=== PATIENT | male | born 1965 | race African-American/Black ===

== ENCOUNTER 2017-07-21 12:46 | Emergency (ER) | payer MEDICARE, MEDICAID ==
[2017-07-21] MEDS ORDERED: HALOPERIDOL LACTATE 5 MG/ML VIAL IM ONE (13:09)
--- NOTE | 2017-07-21 13:29 | ERNOTE ---
Psychological HPI - Date Date of Service: 07/21/17 - General Chief Complaint: Psychiatric Problem Source: Reports: patient Exam Limitations: Reports: no limitations - Immun/Allergies/Home Medications Allergies/Adverse Reactions: Allergies sulfamethoxazole [From Bactrim] Allergy (Mild, Verified 07/21/17 12:54) Hives trimethoprim [From Bactrim] Allergy (Mild, Verified 07/21/17 12:54) Hives Home Medications: HOME MEDICATIONS Amiodarone HCl [Cordarone] 200 mg PO DAILY 12/27/13 [Last Taken 04/04/15 08:00] Aspirin [Aspirin Enteric Coated] 325 mg PO DAILY 12/27/13 [Last Taken Unknown] Nitroglycerin [Nitrostat] 0.4 mg SL Q5MIN PRN 12/27/13 [Last Taken Unknown] Ranitidine HCl [Zantac] 150 mg PO BID 12/27/13 [Last Taken Unknown] Sertraline HCl [Zoloft] 150 mg PO DAILY 12/27/13 [Last Taken Unknown] Simvastatin [Zocor] 20 mg PO HS 12/27/13 [Last Taken Unknown] Carvedilol [Coreg] 25 mg PO BID 04/03/15 [Last Taken 04/04/15 08:00] Lisinopril [Prinivil] 20 mg PO BID 04/03/15 [Last Taken 04/04/15 08:00] risperiDONE [Risperdal] 3 mg PO HS 04/03/15 [Last Taken Unknown] ALPRAZolam [Xanax] 2 mg PO QID #54 tablet 07/21/17 [Last Taken Unknown] QUEtiapine FUMARATE [Seroquel] 400 mg PO HS #6 tablet 07/21/17 [Last Taken Unknown] Sertraline HCl [Zoloft] 150 mg PO DAILY #10 tablet 07/21/17 [Last Taken Unknown] Zolpidem Tartrate [ZOLPIDEM (Ambien)] 10 mg PO HS #6 tablet 07/21/17 [Last Taken Unknown] - History of Present Illness Narrative: Pt. comes in with c/o seeing things and inability to sleep after he misplaced his psychiatric medications three days ago. Pt. denies that anyone else has access to his medications or could have stolen them. Pt. states that he has been on medications for years and sees Alivia Strong and has known schizoeffective disorder that he has seen her for in the past. Time Seen by Provider: 07/21/17 13:01 Arrived by: Reports: private car Onset/duration: Reports: gradual onset Intent: Reports: no prior thoughts-suicide. Denies: suicide, prior thoughts of suicide, wants to escape, accidental Mechanism: Denies: overdose, incision, stab wound, ingestion Situational Problems: Reports: other - denies Associated Symptoms: Reports: agitated, paranoid, hallucinating. Denies: hostile, confused, suicidal thoughts, specific plan, made gestures, made attempt Prior Treament: Reports: treated by physician, similar symptoms before Review of Systems - Review of Systems Constitutional: Present: no symptoms reported. Absent: fever, chills, weakness , fatigue, malaise EYE: Present: no symptoms reported ENT: Present: no symptoms reported Respiratory: Present: no symptoms reported. Absent: shortness of breath, cough , wheezing Cardiology: Present: no symptoms reported. Absent: chest pain, palpitations, edema Gastrointestinal/Abdominal: Present: no symptoms reported. Absent: nausea, vomiting, diarrhea, abdominal pain Genitourinary: Present: no symptoms reported. Absent: frequency, decreased urinary output Musculoskeletal: Present: no symptoms reported. Absent: back pain, joint pain Skin: Present: no symptoms reported. Absent: rash, change in hair/nails Neurological: Present: no symptoms reported. Absent: headache, dizziness/light- headedness, numbness, tingling Endocrine: Present: no symptoms reported Psych: Present: anxiety, emotional problems, other - hallucinations All Other Systems: All systems neg except as marked - Patient's Past Medical History Patient History - Medical: GERD, UTI'S Patient History - Cardiac/Respiratory: CVA/Stroke, Myocardial Infarction Patient History - Cancer: No Hx of Cancer Patient History - Surgical Procedures: Pacemaker, Other Patient History - Other: None - Social History Living Situations: home Abuse History: No History of abuse Psych History: Hx of Anxiety, Hx of Depression, Current tx/ever been on anti- depressants or anti-anxiety meds Alcohol Use: none Drug Use: none Psychological Exam - Exam General Appearance: Present: wd/wn, alert, no apparent distress, anxious, other - agitated Head Exam: Present: normal inspection, no evidence of injury, no tenderness w palpation Neurological: Present: alert, agitated, anxious Thoughts/Hallucinations: Present: delusions, flight of ideas, paranoid, visual hallucinations Behavior/Eye Contact/Speech: Present: cooperative, avoids eye contact, increased rate of speech ENT Exam normal except (see below): Yes Neck: Present: normal inspection, nontender, supple, full range of motion. Absent: lymphadenopathy (R), lymphadenopathy (L) Respiratory: Present: no respiratory distress, normal breath sounds, no accessory muscle use, chest nontender, lungs clear Cardiovascular/Chest: Present: regular rate, rhythm, no murmur, normal peripheral pulses Gastrointestinal/Abdominal: Present: normal bowel sounds, nontender, nondistended, soft, no organomegaly Back Exam: Present: normal inspection Extremity Exam: Present: normal inspection Skin Exam: Present: normal color, warm/dry, no cyanosis. Absent: pallor, skin rash ED Progress - Date and Time Seen: Date and Time: 07/21/17 14:12 Pt. is still delusional and pacing so will CT head as pt. has a history of subdural hematoma and this can explain his symptoms. 07/21/17 15:45 Pt. ELIJAH is requesting to take pt. home and although I have explained to her that pt. is likely a possible harm to himself or her she is adamant about taking pt home although he is still actively hallucinating and agitated. Discussed with Dr Daly and he recommends sending pt. home as she requests. Will refill meds and have instructed pt. DPWICHO to return if she is concerned for pt. safety. - Results and Orders Patient's Lab Results:: I have reviewed the patient's lab results. Results and Orders: Abnormal Lab Results 07/21/17 07/21/17 07/21/17 Range/Units 13:20 13:20 13:34 MCV 75.9 L (78-100) fl MCHC 37.6 H (32-36) g/dl MPV 10.3 H (6.0-9.5) fl Chloride 96 L (97-106) mmol/L Anion Gap 15.4 H (6.8-13.8) mmol/L Random Glucose 151 H (70-110) mg/dL Total Protein 8.7 H (6.2-8.2) gm/dL Urine Protein 100 H (NEGATIVE) mg/dL Urine Blood 25 H (NEGATIVE) /ul Salicylates Less than 2.8 L (2.8-20.0) mg/dL - Vital Signs Patient's Vital Signs:: I have reviewed the patient's vital signs. Vital Signs: Vital Signs 07/21/17 12:51 Temperature 36.2 C L Pulse Rate 69 Respiratory 12 Rate Blood Pressure 155/98 O2 Sat by Pulse 98 Oximetry - CT/Ultrasound CT/Ultrasound Narrative: CT head without any acute process. - Progress/Reassessment Chief Complaint: Psychiatric Problem Progress:: Unchanged Time Seen by Provider: 07/21/17 13:01 Departure Clinical Impression: Schizo affective schizophrenia - Departure Disposition: Home self-care Condition: Fair Instructions: Schizophrenia Additional Instructions: Please restart psychiatric medications and do not leave pt alone at any time until he improves and is seen by psychiatrist. Referrals: Sandie Myrick MD [Primary Care Provider] - Prescriptions: ALPRAZolam [Xanax] 2 mg PO QID #54 tablet QUEtiapine FUMARATE [Seroquel] 400 mg PO HS #6 tablet Sertraline HCl [Zoloft] 150 mg PO DAILY #10 tablet Zolpidem Tartrate [ZOLPIDEM (Ambien)] 10 mg PO HS #6 tablet
[2017-07-21] MEDS ORDERED: HALOPERIDOL LACTATE 5 MG/ML VIAL ONE (13:35)
[2017-07-21 13:38] LABS: Urine Bilirubin Negative (NEGATIVE); Urine Blood 25 /ul (NEGATIVE); Urine Ketone Negative (NEGATIVE); Urine Nitrite Negative (NEGATIVE); Urine Protein 100 mg/dL (NEGATIVE); Urine Urobilinogen Normal (NORMAL)
[2017-07-21 13:44] LABS: Urine Appearance Clear; Urine Bacteria None Seen; Urine Color Yellow; Urine RBC None Seen /hpf (0-5); Urine WBC None Seen /hpf (0-5)
[2017-07-21 13:50] LABS: Cocaine Ur Negative (NEGATIVE); Urine Barbiturate Negative (NEGATIVE); Urine Benzodiazepines Negative (NEGATIVE); Urine Opiates Negative (NEGATIVE); Urine PCP Negative (NEGATIVE); Urine THC Negative (NEGATIVE)
[2017-07-21 13:53] LABS: Hematocrit 42.5 % (42.0-52.0); Mean Cell Volume 75.9 fl (78-100); Mean Corpuscular Hemoglobin 28.6 pg (27-31); Mean Corpuscular Hgb Conc 37.6 g/dl (32-36); Mean Platelet Volume 10.3 fl (6.0-9.5); Neutrophil % 72.9 % (42-75.0); Platelet Count 299 K/mm3 (150-450); White Blood Count 8.3 K/mm3 (4.0-10.5)
[2017-07-21 13:54] LABS: ALT 22 U/L (19-67); AST 15 U/L (0-48); Albumin * 4.7 gm/dl (3.4-5.0); Alkaline Phosphatase * 106 U/L (50-170); Anion Gap 15.4 mmol/L (6.8-13.8); Bilirubin, Total 0.9 mg/dL (0.0-1.1); Blood Urea Nitrogen 9 mg/dL (6-23); Ca. Corrected For Albumin 8.4 mg/dL (8.4-10.2); Calcium * 9.3 mg/dL (7.9-10.9); Chloride 96 mmol/L (97-106); Glucose * 151 mg/dL (70-110); Potassium 3.4 mmol/L (3.4-4.6); Salicylate Less than 2.8 mg/dL (2.8-20.0); Sodium 133 mmol/L (132-142); TSH * 1.175 uIU/mL (0.358-3.74); Total Protein 8.7 gm/dL (6.2-8.2)
[2017-07-21] MEDS ORDERED: ALPRAZolam 0.25 MG TABLET PO ONE (14:22)
[2017-07-21] MEDS ORDERED: ALPRAZolam 0.25 MG TABLET ONE (14:34)
[2017-07-21 15:02] VITALS: BP 131/81
== END 2017-07-21 15:59 | disposition home or self-care (01) ==
LOC: ER 12:46
DX: F25.9 Schizoaffective disorder, unspecified (principal); K21.9 Gastro-esophageal reflux disease without esophagitis; Z86.73 Personal history of transient ischemic attack (TIA), and cerebral infarction without residual deficits; I25.2 Old myocardial infarction
CPT/HCPCS: 36415; 70450; 80053; 80307; 81001; 84443; 85025; 96372; 99285; G0480; G0481

== ENCOUNTER 2017-08-26 14:47 | Emergency (ER) | payer MEDICARE, MEDICAID ==
[2017-08-26 15:47] LABS: Hematocrit 37.6 % (42.0-52.0); Hemoglobin 13.7 gm/dL (13.5-18.0); Mean Cell Volume 78.2 fl (78-100); Mean Corpuscular Hemoglobin 28.5 pg (27-31); Mean Corpuscular Hgb Conc 36.4 g/dl (32-36); Mean Platelet Volume 11.2 fl (6.0-9.5); Neutrophil # 3.1 K/mm3 (1.3-6.0); Neutrophil % 57.7 % (42-75.0); Platelet Count 179 K/mm3 (150-450); Red Blood Count 4.81 M/mm3 (4.7-6.0); Red Cell Distribution Width 13.2 % (11.5-14.0); White Blood Count 5.3 K/mm3 (4.0-10.5)
[2017-08-26 16:10] LABS: Albumin * 3.7 gm/dl (3.4-5.0); Anion Gap 12.9 mmol/L (6.8-13.8); BUN/Creatinine Ratio 6.7 (9.0-21.6); Bilirubin, Total 0.4 mg/dL (0.0-1.1); Ca. Corrected For Albumin 8.9 mg/dL (8.4-10.2); Carbon Dioxide 28.3 mmol/L (24-32.6); Potassium 4.2 mmol/L (3.4-4.6); Total Protein 7.6 gm/dL (6.2-8.2); Troponin I 0.037 ng/ml (0.00-0.10)
--- NOTE | 2017-08-26 18:47 | ERNOTE ---
Medical Problem HPI - Narrative Date of Service: 08/26/17 - General Chief Complaint: General Assessment Time Seen by Provider: 08/26/17 15:02 Source: patient, family Exam Limitations: no limitations - Immun/Allergies/Home Medications Immunizations: IMMUNIZATION HX Immunizations Up to Date Yes Allergies/Adverse Reactions: Allergies sulfamethoxazole [From Bactrim] Allergy (Mild, Verified 08/26/17 15:08) Hives trimethoprim [From Bactrim] Allergy (Mild, Verified 08/26/17 15:08) Hives Home Medications: HOME MEDICATIONS Amiodarone HCl [Cordarone] 600 mg PO DAILY 12/27/13 [Last Taken 04/04/15 08:00] Aspirin [Aspirin Enteric Coated] 325 mg PO DAILY 12/27/13 [Last Taken Unknown] Nitroglycerin [Nitrostat] 0.4 mg SL Q5MIN PRN 12/27/13 [Last Taken Unknown] Ranitidine HCl [Zantac] 150 mg PO BID 12/27/13 [Last Taken Unknown] Simvastatin [Zocor] 20 mg PO HS 12/27/13 [Last Taken Unknown] Carvedilol [Coreg] 25 mg PO BID 04/03/15 [Last Taken 04/04/15 08:00] Lisinopril [Prinivil] 40 mg PO DAILY 04/03/15 [Last Taken 04/04/15 08:00] risperiDONE [Risperdal] 2 mg PO HS 04/03/15 [Last Taken Unknown] ALPRAZolam [Xanax] 2 mg PO QID #54 tablet 07/21/17 [Last Taken Unknown] Sertraline HCl [Zoloft] 150 mg PO DAILY #10 tablet 07/21/17 [Last Taken Unknown] Zolpidem Tartrate [ZOLPIDEM (Ambien)] 10 mg PO HS #6 tablet 07/21/17 [Last Taken Unknown] Furosemide [Lasix] 40 mg PO DAILY #30 tablet 08/26/17 [Last Taken Unknown] Methimazole [Tapazole] 10 mg PO DAILY 08/26/17 [Last Taken Unknown] Sildenafil Citrate [Revatio] 20 mg PO TID 08/26/17 [Last Taken Unknown] hydrOXYzine PAMOATE [Hydroxyzine Pamoate] 25 mg PO QID 08/26/17 [Last Taken Unknown] - History of Present History Narrative: patient c/o sob and weight gain over last week Timing: constant, getting worse Severity: mild Modifying Factors - (Improves): Present: other - nothing Review of Systems - Review of Systems Constitutional: Present: See HPI, weakness, other - weight gain EYE: Present: no symptoms reported ENT: Present: no symptoms reported Respiratory: Present: shortness of breath, orthopnea Cardiology: Present: edema Gastrointestinal/Abdominal: Present: no symptoms reported Genitourinary: Present: no symptoms reported Musculoskeletal: Present: no symptoms reported Skin: Present: no symptoms reported Neurological: Present: no symptoms reported Endocrine: Present: no symptoms reported Hematologic/Lymphatic: Present: no symptoms reported Psych: Present: no symptoms reported All Other Systems: All systems neg except as marked - Patient's Past Medical History Patient History - Medical: GERD, UTI'S Patient History - Cardiac/Respiratory: Coronary Heart Disease, CVA/Stroke, Myocardial Infarction Patient History - Cancer: No Hx of Cancer Patient History - Surgical Procedures: Pacemaker, Other Patient History - Other: None - Family History Family History:: no untoward family reactions to anesthesia, no familial bleeding tendencies, no family history of clotting disorders, no family history of premature - Social History Living Situations: home Abuse History: No History of abuse Psych History: Hx of Anxiety, Hx of Depression, Current tx/ever been on anti- depressants or anti-anxiety meds Smoking Status: Current every day smoker Have you smoked in the past 12 months: Yes Do you dip or chew tobacco: Yes Patient requests Smoking Cessation Consult: No Initiate information on Smoking Cessation: No Alcohol Use: none Drug Use: none - Immunizations Immunizations Up to Date: Yes Physical Exam - Physical Exam General Appearance: Present: no apparent distress Head Exam: Present: normal inspection, no evidence of injury Eye Exam: Normal inspection: bilateral, PERRL: bilateral, EOMI: bilateral Ears, Nose, Throat: Present: normal ENT inspection Neck: Present: normal inspection, nontender Respiratory: Present: no respiratory distress, rales, rhonchi Cardiovascular/Chest: Present: regular rate, rhythm, no murmur, normal peripheral pulses Peripheral Pulses: N=norm/S=strong/W=weak/B=bound/A=absent: Carotid (R): Normal , Carotid (L): Normal, Radial (R): Normal, Radial (L): Normal, Femoral (R): Normal, Femoral (L): Normal, Dorsalis-pedis (R): Normal, Dorsalis-pedis (L): Normal Gastrointestinal/Abdominal: Present: normal bowel sounds Back Exam: Present: normal inspection, normal range of motion, no CVA tenderness , no vertebral tenderness Extremity Exam: Present: normal inspection, non-tender, normal range of motion, no edema Neurological Exam: Present: alert, oriented, normal mood/affect DTR: N=norm/NB=norm/brisk/A=abs/DD=dull/dimin/HC=hyperactive: Bicep (R): Normal , Bicep (L): Normal, Tricep (R): Normal, Tricep (L): Normal, Knee (R): Normal, Knee (L): Normal, Ankle (R): Normal, Ankle (L): Normal Skin Exam: Present: normal color, warm/dry Lymphatic Exam: Present: no adenopathy ED Progress - Date and Time Seen: Date and Time: 08/26/17 18:43 condition unchanged, discussed labs and x-rays with the patient, to f/u with dr myrick - Results and Orders Patient's Lab Results:: I have reviewed the patient's lab results. - Vital Signs Patient's Vital Signs:: I have reviewed the patient's vital signs. Vital Signs: Vital Signs 08/26/17 08/26/17 08/26/17 14:56 15:19 15:34 Temperature 36.5 C Pulse Rate 81 77 82 Respiratory 19 12 20 Rate Blood Pressure 133/75 124/79 O2 Sat by Pulse 61 L 94 92 Oximetry 08/26/17 08/26/17 08/26/17 15:51 16:06 16:42 Temperature Pulse Rate 103 H 80 80 Respiratory 12 18 28 H Rate Blood Pressure 138/92 141/70 O2 Sat by Pulse 96 92 93 Oximetry 08/26/17 08/26/17 17:10 17:48 Temperature 36.7 C Pulse Rate 86 80 Respiratory 28 H 16 Rate Blood Pressure 139/69 142/94 O2 Sat by Pulse 93 95 Oximetry - EKG EKG: other - paced rhtym EKG read: Interp. by me - X-Ray X-Ray #1 X-Ray: chest - unremarkable - CT/Ultrasound CT/Ultrasound Narrative: bilateral pleural effusions, no acute pe chronic pe - Progress/Reassessment Chief Complaint: General Assessment Progress:: Unchanged - Transfer of Care Expected Disposition: Discharge Plan - Plan Plan: to be discharged Departure Clinical Impression: Pleural effusion - Departure Disposition: Home self-care Condition: Fair Instructions: Pleural Effusion Referrals: Sandie Myrick MD [Primary Care Provider] - Prescriptions: Furosemide [Lasix] 40 mg PO DAILY #30 tablet
[2017-08-26] MEDS ORDERED: FUROSEMIDE 40 MG TABLET PO ONE (18:48)
[2017-08-26 19:06] VITALS: BP 137/70
== END 2017-08-26 18:50 | disposition home or self-care (01) ==
LOC: ER 14:47
PROC: 4A033R1 Measurement of Arterial Saturation, Peripheral, Percutaneous Approach (ICD-10-PCS; principal; 2017-08-26)
DX: J90 Pleural effusion, not elsewhere classified (principal); Z87.440 Personal history of urinary (tract) infections; Z95.0 Presence of cardiac pacemaker; I25.2 Old myocardial infarction; K21.9 Gastro-esophageal reflux disease without esophagitis; F32.9 Major depressive disorder, single episode, unspecified; I50.9 Heart failure, unspecified; F41.9 Anxiety disorder, unspecified; Z86.73 Personal history of transient ischemic attack (TIA), and cerebral infarction without residual deficits; F17.200 Nicotine dependence, unspecified, uncomplicated

== ENCOUNTER 2019-03-13 20:40 | Inpatient (IN) ==
--- NOTE | 2019-03-13 21:04 | ERNOTE ---
Medical Problem HPI - Narrative Date of Service: 03/13/19 - General Chief Complaint: Screening, Blood Pressure Time Seen by Provider: 03/13/19 20:42 Source: patient, family - Immun/Allergies/Home Medications Immunizations: IMMUNIZATION HX Immunizations Up to Date Yes Allergies/Adverse Reactions: Allergies sulfamethoxazole [From Bactrim] Allergy (Mild, Verified 01/18/19 13:18) Hives trimethoprim [From Bactrim] Allergy (Mild, Verified 01/18/19 13:18) Hives Home Medications: HOME MEDICATIONS Aspirin [Aspirin Enteric Coated] 325 mg PO DAILY 12/27/13 [Last Taken Unknown] famciclovir 250 mg tablet 750 mg PO BID tab 02/03/18 [Last Taken Unknown] spironolactone 25 mg tablet 25 mg PO DAILY 02/03/18 [Last Taken Unknown] furosemide 20 mg tablet 40 mg PO BID #360 tab 07/15/18 [Last Taken Unknown] potassium chloride ER 20 mEq tablet,extended release 40 meq PO DAILY #180 tab [Last Taken Unknown] lisinopril 10 mg tablet 20 mg PO BID #90 tab 11/19/18 [Last Taken Unknown] ranitidine 150 mg tablet See Rx Instructions .ROUTE .COMPLEX #180 unspecified 12/23/18 [Last Taken Unknown] atorvastatin 40 mg tablet 40 mg PO HS #90 tab 12/31/18 [Last Taken Unknown] alprazolam 2 mg tablet 2 mg PO QID PRN #120 tab 01/18/19 [Last Taken Unknown] lurasidone 60 mg tablet 60 mg PO DAILY #30 tab 01/18/19 [Last Taken Unknown] quetiapine 200 mg tablet 200 mg PO HS PRN #30 tab 01/18/19 [Last Taken Unknown] sertraline 100 mg tablet 100 mg PO DAILY #30 tab 01/18/19 [Last Taken Unknown] - History of Present History Narrative: This is a 54-year-old male brought to the emergency department with low blood pressure and dizziness when he stands up. The patient has a history of congestive heart failure. His doctor changed his Lasix dose back in December. Since then he has not had any follow-up. He reports that the fluid retention in his abdomen got better, but recently he has noticed that his blood pressure is down and he gets dizzy when he first stands up he is also been sleeping a great deal. He is still making plenty of urine. He denies any dietary indiscretion. He has not bothered to call his family doctor to address any of this. He has no fever chills nausea vomiting chest pain shortness of breath diarrhea constipation headache blurred vision or new neurologic symptoms. Review of Systems - Review of Systems Constitutional: Present: no symptoms reported EYE: Present: no symptoms reported ENT: Present: no symptoms reported Respiratory: Present: no symptoms reported Cardiology: Present: no symptoms reported Gastrointestinal/Abdominal: Present: no symptoms reported, See HPI, other - Feels like the abdomen gets a bit distended at times Genitourinary: Present: no symptoms reported Musculoskeletal: Present: no symptoms reported Skin: Present: no symptoms reported Neurological: Present: other - Dizziness when standing Endocrine: Present: no symptoms reported Hematologic/Lymphatic: Present: no symptoms reported Psych: Present: no symptoms reported Medical History (Updated 01/18/19 @ 13:28 by Alivia Nunn [facility]) Schizoaffective disorder (Chronic) Insomnia due to mental disorder (Chronic) Generalized anxiety disorder (Chronic) ASD (atrial septal defect) Repair and cleft MV repair; AV repair 06/2010; systolic murmur Anxiety and depression Onset Date: ~2004 Bipolar 1 disorder CAD (coronary artery disease) Onset Date: 07/20/17 07/20/17 Repair and cleft MV repair; AV repair 06/2010; Systolic murmur, ICD (2009) Vfib/cardiac arrest. CHF (congestive heart failure) CVA (cerebral vascular accident) Onset Date: ~2009 Patient states he had a blood clot on his brain and his left side "went numb" he states he has recurrent memory loss Erectile dysfunction Onset Date: 06/30/14 HTN (hypertension) Onset Date: Unknown Hx of echocardiogram Onset Date: 08/24/17 Moderate Rt-sided AV valve regurgitation. EF 45-50%. 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 History of eli hole surgery x3 2010 Hx of cardiac catheterization 2004, 2018 Hx of colonoscopy w/biopsy. 01/17/14 Dr. Correa - Mild inflammation, probably from the prep. Recheck 10 yrs. Hx of heart surgery ASD closure, right-sided maze, mitral and tricuspid valve repair Family History: Family History (Updated 03/24/18 @ 18:24 by Nia Mcclain RN) Mother , Age 40 d/t breast carcinoma Cancer Breast carcinoma Sister Hypertension Social History: (Last Updated 01/18/19 @ 13:28 by Alivia Nunn [facility]) Social History: Marital status: Single lives independently: Yes household members: children current occupational status: disabled Highest education level completed: some college, no degree Service: No Tobacco: Smoking Status: Current every day smoker tobacco type: cigarettes Smoking cigarettes per day: 10.0 Smoking packs per day: 0.5 Tobacco: How many years used: 40 Alcohol: alcohol intake: current details: Current some day occasionally socially Substance Use: substance use type: marijuana Dietary Habits: caffeine: No caffeine comment: Never Physical Exam - Physical Exam General Appearance: Present: wd/wn, alert, no apparent distress Head Exam: Present: normal inspection, no evidence of injury Eye Exam: Normal inspection: bilateral, PERRL: bilateral, EOMI: bilateral Ears, Nose, Throat: Present: normal ENT inspection, normal pharynx Neck: Present: normal inspection, nontender Respiratory: Present: no respiratory distress, normal breath sounds, chest nontender, lungs clear Cardiovascular/Chest: Present: regular rate, rhythm, no murmur Gastrointestinal/Abdominal: Present: normal bowel sounds, nontender, nondis tended, soft Extremity Exam: Present: normal inspection, non-tender, normal range of motion, no edema Neurological Exam: Present: alert, oriented, normal mood/affect, no motor/sensory deficits Skin Exam: Present: normal color, warm/dry Lymphatic Exam: Present: no adenopathy Progress - Results and Orders Patient's Lab Results:: I have reviewed the patient's lab results. - Vital Signs Patient's Vital Signs:: I have reviewed the patient's vital signs. Vital Signs: Vital Signs 03/13/19 20:40 03/13/19 20:43 Temperature 36.4 C Pulse Rate 73 Respiratory Rate 14 Blood Pressure 105/49 105/49 O2 Sat by Pulse Oximetry 98 - EKG EKG #1 EKG read: Interp. by me EKG Comments: EKG demonstrates sinus rhythm ventricular rate of 73, left axis at -55, interventricular conduction delay with QRS duration of 118. Nonspecific T wave changes in V1 and V2 along with [address] No definite [address] elevation. J-point elevation inferiorly. - Progress/Reassessment Chief Complaint: Screening, Blood Pressure Plan - Plan Plan: This is a 54-year-old gentleman who had his Lasix dose increased back in December. He is becoming dehydrated. And acute renal failure. Hypotensive. Needs to be admitted and get repeat kidney function. I am going to write for a liter here and a liter on the floor. I am going to write for repeat tests in 6 hours to 8 hours, in the morning. Departure Clinical Impression: Dehydration Acute renal failure Qualifiers: Acute renal failure type: unspecified Qualified Code(s): N17.9 - Acute kidney failure, unspecified - Departure Disposition: Still a patient Condition: Stable Referrals: Yael Parsons MD [Primary Care Provider] -
[2019-03-13 21:18] LABS: Hematocrit 33.4 % (42.0-52.0); Hemoglobin 12.2 gm/dL (13.5-18.0); Mean Cell Volume 81.7 fl (78-100); Mean Corpuscular Hemoglobin 29.8 pg (27-31); Mean Corpuscular Hgb Conc 36.5 g/dl (32-36); Mean Platelet Volume 10.7 fl (8-11.3); Neutrophil % 57.1 % (42-75.0); Platelet Count 201 K/mm3 (150-450); Red Blood Count 4.09 M/mm3 (4.7-6.0); Red Cell Distribution Width 13.4 % (11.5-14.0)
[2019-03-13 21:40] LABS: Albumin * 4.5 gm/dl (3.4-5.0); BUN/Creatinine Ratio 13.1 (9.0-21.6); Bilirubin, Total 0.4 mg/dL (0.0-1.1); Ca. Corrected For Albumin 8.1 mg/dL (8.4-10.2); Calcium * 8.8 mg/dL (7.9-10.9); Carbon Dioxide 22.9 mmol/L (24-32.6); Potassium 4.9 mmol/L (3.4-4.6); Total Protein 7.9 gm/dL (6.2-8.2)
[2019-03-13] MEDS ORDERED: NORMAL SALINE 1,000 ML IV ONE ×2 (21:44→21:53)
[2019-03-13] MEDS ORDERED: NORMAL SALINE 1,000 ML IV PRN (21:53)
[2019-03-14] MEDS: NORMAL SALINE 1,000 ML IV PRN ×2 (04:13→11:21)
[2019-03-14 05:59] LABS: Anion Gap 14.5 mmol/L (6.8-13.8); BUN/Creatinine Ratio 16.8 (9.0-21.6); Calcium * 7.8 mg/dL (7.9-10.9); Carbon Dioxide 22.1 mmol/L (24-32.6); Estimated Creat Clear 25.9; Potassium 4.6 mmol/L (3.4-4.6)
[2019-03-14] MEDS ORDERED: ALPRAZolam 1 MG TABLET PO PRN (09:48)
[2019-03-14] MEDS ORDERED: QUEtiapine FUMARATE 100 MG TABLET PO PRN (09:48)
[2019-03-14] MEDS ORDERED: SERTRALINE HCL 100 MG TABLET PO SCH (10:00)
[2019-03-14] MEDS ORDERED: LURASIDONE HCL 80 MG TABLET PO SCH ×2 (10:00→21:00)
[2019-03-14 14:13] LABS: Albumin * 3.7 gm/dl (3.4-5.0); Anion Gap 13.7 mmol/L (6.8-13.8); BUN/Creatinine Ratio 18.4 (9.0-21.6); Bilirubin, Total 0.4 mg/dL (0.0-1.1); Carbon Dioxide 23.2 mmol/L (24-32.6); Potassium 4.9 mmol/L (3.4-4.6); Total Protein 7.1 gm/dL (6.2-8.2)
[2019-03-14 14:18] LABS: Calcium * 8.1 mg/dL (7.9-10.9)
--- NOTE | 2019-03-14 14:36 | HPDIS ---
Chief Complaint - Chief Complaint Date of Service: 03/14/19 - ] Time of Service: 09:00 Chief Complaint: feels tired, acute renal failure History of Present Illness: Patient presented to the ED for feeling tired and being dizzy with standing. He has a PMHx of renal insufficiency, previous subdural hematoma requiring surgery, schizoaffective disorder, previous cardiac arrest and subsequent pacemaker placement. He reports his previous PCP changed his lasix dose to 40 mg twice a day for abdominal swelling. This change happened several months ago, and he was unable to get a follow up visit with that physician to check labs since then. He was a remote patient of Dr. Slade, and states his BP dropped after an increase in his lasix. He is disabled due to his cardiac history. In the ED, he was in acute renal failure, with a creatinine of 4.57 and a GFR of 17. At the time of my H&P, he had received fluids overnight, and reported "feeling great." His renal function improved with IV fluids. By the time of DC, his creatinine improved to 2.07 and a GFR of 43. Chart review shows previous renal insufficiency earlier this year, but he was unaware of this. His BP was a bit low, and his antihypertensives were held. He would like to establish with another physician after DC, and I recommend he see an research psychologist due to his complexity. Medical History (Updated 03/14/19 @ 15:05 by Leslie Pedro DO) Schizoaffective disorder (Chronic) Insomnia due to mental disorder (Chronic) Generalized anxiety disorder (Chronic) ASD (atrial septal defect) Repair and cleft MV repair; AV repair 06/2010; systolic murmur Anxiety and depression Onset Date: ~2004 Bipolar 1 disorder CAD (coronary artery disease) Onset Date: 07/20/17 07/20/17 Repair and cleft MV repair; AV repair 06/2010; Systolic murmur, ICD (2009) Vfib/cardiac arrest. CHF (congestive heart failure) CVA (cerebral vascular accident) Onset Date: ~2009 Patient states he had a blood clot on his brain and his left side "went numb" he states he has recurrent memory loss Erectile dysfunction Onset Date: 06/30/14 HTN (hypertension) Onset Date: Unknown Hx of echocardiogram Onset Date: 08/24/17 Moderate Rt-sided AV valve regurgitation. EF 45-50%. 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 History of eli hole surgery x3 2010 Hx of cardiac catheterization 2004, 2017 Hx of colonoscopy w/biopsy. 01/17/14 Dr. Correa - Mild inflammation, probably from the prep. Recheck 10 yrs. Hx of heart surgery ASD closure, right-sided maze, mitral and tricuspid valve repair Family History: Family History (Updated 03/24/18 @ 18:24 by Nia Mcclain RN) Mother , Age 40 d/t breast carcinoma Cancer Breast carcinoma Sister Hypertension Social History: (Last Reviewed 03/13/19 @ 22:43 by Elysia Fam RN) Social History: Marital status: Single lives independently: Yes household members: children current occupational status: disabled Highest education level completed: some college, no degree Service: No Tobacco: Smoking Status: Current every day smoker tobacco type: cigarettes Smoking cigarettes per day: 10.0 Smoking packs per day: 0.5 Tobacco: How many years used: 40 Alcohol: alcohol intake: current details: Current some day occasionally socially Substance Use: substance use type: marijuana Dietary Habits: caffeine: No caffeine comment: Never Review Of Systems (GEN) - Review of Systems Generalized/Overall Review: Present: Weakness. Absent: Fever, Weight loss Respiratory: Absent: Shortness of Breath Cardiac: Absent: Chest Pain, Edema Abdominal: Absent: Abdominal Pain Genitourinary: Absent: Dysuria Neurological: Present: Pre-existing Deficit - he reports having some short term memory loss after his cardiac arrest Skin: Present: No Symptoms Reported Immunizations: IMMUNIZATION HX Immunizations Up to Date Yes Allergies/Adverse Reactions: Allergies Allergy/AdvReac Type Severity Reaction Status Date / Time sulfamethoxazole Allergy Mild Hives Verified 01/18/19 13:18 [From Bactrim] trimethoprim [From Bactrim] Allergy Mild Hives Verified 01/18/19 13:18 Home Medications: HOME MEDICATIONS Aspirin [Aspirin Enteric Coated] 325 mg PO DAILY 12/27/13 [Last Taken Unknown] furosemide 20 mg tablet 40 mg PO BID #360 tab 07/15/18 [Last Taken Unknown] potassium chloride ER 20 mEq tablet,extended release 40 meq PO DAILY #180 tab 08/18/18 [Last Taken Unknown] lisinopril 10 mg tablet 20 mg PO BID #90 tab 11/19/18 [Last Taken Unknown] ranitidine 150 mg tablet See Rx Instructions .ROUTE .COMPLEX #180 unspecified 12/23/18 [Last Taken Unknown] atorvastatin 40 mg tablet 40 mg PO HS #90 tab 12/31/18 [Last Taken Unknown] alprazolam 2 mg tablet 2 mg PO QID PRN #120 tab 01/18/19 [Last Taken Unknown] lurasidone 60 mg tablet 60 mg PO DAILY #30 tab 01/18/19 [Last Taken Unknown] quetiapine 200 mg tablet 200 mg PO HS PRN #30 tab 01/18/19 [Last Taken Unknown] sertraline 100 mg tablet 100 mg PO DAILY #30 tab 01/18/19 [Last Taken Unknown] Carvedilol [Coreg] 25 mg PO BID 03/14/19 [Last Taken Unknown] Exam - Exam Vital Signs: Vital Signs - Last Taken Temp 36.8 C 03/14/19 13:50 Pulse 68 03/14/19 13:50 Resp 16 03/14/19 13:50 BP 111/52 03/14/19 13:50 Pulse Ox 97 03/14/19 13:50 Constitutional: Present: Alert, Oriented x3, Cooperative, No distress ENT Exam: Present: other - surgical scars in right parietal region Respiratory: Present: normal breath sounds, no respiratory distress Cardiovascular/Chest: Present: regular rate, rhythm Abdomen: Present: Normal bowel sounds, obese Extremity: Absent: lower extremity edema Neurologic: Present: normal mood/affect Eye contact: Present: cooperative, good eye contact Diagnostic Studies: Abnormal Lab Results 03/13/19 03/13/19 03/14/19 Range/Units 21:18 21:18 05:46 RBC 4.09 L (4.7-6.0) M/mm3 Hgb 12.2 L (13.5-18.0) gm/dL Hct 33.4 L (42.0-52.0) % MCHC 36.5 H (32-36) g/dl Eosinophils % 5.8 H (0.0-3.0) % Potassium 4.9 H (3.4-4.6) mmol/L Chloride 107 H (97-106) mmol/L Carbon Dioxide 22.9 L 22.1 L (24-32.6) mmol/L Anion Gap 18.0 H 14.5 H (6.8-13.8) mmol/L BUN 60 H D 50 H (6-23) mg/dL Creatinine 4.57 H D 2.98 H D (0.4-1.4) mg/dL Est GFR (Non-Af Amer) 17 L D 28 L D (60-130) mL/min Random Glucose 148 H (70-110) mg/dL Calcium 7.8 L (7.9-10.9) mg/dL Calcium Adj for Albumin 8.1 L (8.4-10.2) mg/dL 03/14/19 Range/Units 14:00 RBC (4.7-6.0) M/mm3 Hgb (13.5-18.0) gm/dL Hct (42.0-52.0) % MCHC (32-36) g/dl Eosinophils % (0.0-3.0) % Potassium 4.9 H (3.4-4.6) mmol/L Chloride 107 H (97-106) mmol/L Carbon Dioxide 23.2 L (24-32.6) mmol/L Anion Gap (6.8-13.8) mmol/L BUN 38 H (6-23) mg/dL Creatinine 2.07 H D (0.4-1.4) mg/dL Est GFR (Non-Af Amer) 43 L D (60-130) mL/min Random Glucose 119 H (70-110) mg/dL Calcium (7.9-10.9) mg/dL Calcium Adj for Albumin 8.0 L (8.4-10.2) mg/dL Laboratory Results WBC 7.0 K/mm3 (4.0-10.5) 03/13/19 21:18 RBC 4.09 M/mm3 (4.7-6.0) L 03/13/19 21:18 Hgb 12.2 gm/dL (13.5-18.0) L 03/13/19 21:18 Hct 33.4 % (42.0-52.0) L 03/13/19 21:18 MCV 81.7 fl (78-100) 03/13/19 21:18 MCH 29.8 pg (27-31) 03/13/19 21:18 MCHC 36.5 g/dl (32-36) H 03/13/19 21:18 RDW 13.4 % (11.5-14.0) 03/13/19 21:18 Plt Count 201 K/mm3 (150-450) 03/13/19 21:18 MPV 10.7 fl (8-11.3) 03/13/19 21:18 Immature Gran % (Auto) 0.30 % (0.001-0.429) 03/13/19 21:18 Immature Gran # (Auto) 0.02 K/mm3 (0.000-0.0310) 03/13/19 21:18 57.1 % (42-75.0) 03/13/19 21:18 27.8 % (20-51) 03/13/19 21:18 8.7 % (0.0-9) 03/13/19 21:18 5.8 % (0.0-3.0) H 03/13/19 21:18 0.3 % (0.0-1.0) 03/13/19 21:18 Nucleated RBC % 0.0 k/mm3 (0-1) 03/13/19 21:18 4.0 K/mm3 (1.3-6.0) 03/13/19 21:18 1.95 k/mm3 (1.5-3.5) 03/13/19 21:18 0.6 k/mm3 (0.0-1.0) 03/13/19 21:18 0.4 k/mm3 (0.0-0.7) 03/13/19 21:18 Absolute Basophils 0.0 k/mm3 (0.0-0.1) 03/13/19 21:18 Sodium 139 mmol/L (132-142) 03/14/19 14:00 139 mmol/L (130-142) 03/14/19 14:00 Potassium 4.9 mmol/L (3.4-4.6) H 03/14/19 14:00 Chloride 107 mmol/L (97-106) H 03/14/19 14:00 Carbon Dioxide 23.2 mmol/L (24-32.6) L 03/14/19 14:00 13.7 mmol/L (6.8-13.8) 03/14/19 14:00 BUN 38 mg/dL (6-23) H 03/14/19 14:00 2.07 mg/dL (0.4-1.4) H D 03/14/19 14:00 Est GFR (Non-Af Amer) 43 mL/min (60-130) L D 03/14/19 14:00 18.4 (9.0-21.6) 03/14/19 14:00 119 mg/dL (70-110) H 03/14/19 14:00 Calcium 8.1 mg/dL (7.9-10.9) 03/14/19 14:00 Calcium Adj for Albumin 8.0 mg/dL (8.4-10.2) L 03/14/19 14:00 0.4 mg/dL (0.0-1.1) 03/14/19 14:00 AST 22 U/L (0-48) 03/14/19 14:00 ALT 28 U/L (19-67) 03/14/19 14:00 136 U/L (50-170) 03/14/19 14:00 7.1 gm/dL (6.2-8.2) 03/14/19 14:00 3.7 gm/dl (3.4-5.0) 03/14/19 14:00 Assessment/Plan - Assessment/Plan (1) Acute renal failure Assessment: Could have been secondary to diuretic use, but unable to find documentation of the increase in lasix dose to 40 mg bid. He is to take 40 mg daily when he notices swelling, or if he gains 3 pounds in one day. He will be susceptible to further renal injury, and would have a low threshold to refer to nephrology. Problem: Resolved Qualifiers: Acute renal failure type: unspecified Qualified Code(s): N17.9 - Acute k idney failure, unspecified (2) Dehydration Problem: Resolved (3) H/O congenital atrial septal defect (ASD) repair Problem: Resolved (4) History of eli hole surgery Problem: Resolved (5) History of implantable cardioverter-defibrillator (ICD) placement Problem: Resolved (6) Personal history of subdural hematoma Problem: Resolved (7) Ventricular arrhythmia Problem: Chronic (8) Heart failure with preserved ejection fraction Problem: Chronic Qualifiers: Heart failure chronicity: chronic Qualified Code(s): I50.32 - Chronic diastolic (congestive) heart failure (9) HTN (hypertension) Assessment: Will hold his lisinopril for somewhat low BP, and can reassess at his follow up visit. Would recommend CCB or thiazide diuretic for an antihypertensive, since he is . If it is for CHF, would recommend once daily dosing for easier medication compliance. Problem: Chronic Qualifiers: Hypertension type: essential hypertension Qualified Code(s): I10 - Essential (primary) hypertension (10) CVA (cerebral vascular accident) Problem: Resolved (11) Schizoaffective disorder Problem: Chronic Qualifiers: Schizoaffective disorder type: bipolar Qualified Code(s): F25.0 - Schizoaffective disorder, bipolar type (12) Insomnia due to mental disorder Problem: Chronic (13) Generalized anxiety disorder Problem: Chronic (1) Acute renal failure Problem: Resolved Qualifiers: Acute renal failure type: unspecified Qualified Code(s): N17.9 - Acute kidney failure, unspecified (2) Dehydration Problem: Resolved (3) H/O congenital atrial septal defect (ASD) repair Problem: Resolved (4) History of eli hole surgery Problem: Resolved (5) History of implantable cardioverter-defibrillator (ICD) placement Problem: Resolved (6) Personal history of subdural hematoma Problem: Resolved (7) Ventricular arrhythmia Problem: Chronic (8) Heart failure with preserved ejection fraction Problem: Chronic Qualifiers: Heart failure chronicity: chronic Qualified Code(s): I50.32 - Chronic diastolic (congestive) heart failure (9) HTN (hypertension) Problem: Chronic Qualifiers: Hypertension type: essential hypertension Qualified Code(s): I10 - Essential (primary) hypertension (10) CVA (cerebral vascular accident) Problem: Resolved (11) Schizoaffective disorder Problem: Chronic Qualifiers: Schizoaffective disorder type: bipolar Qualified Code(s): F25.0 - Schizoaffective disorder, bipolar type (12) Insomnia due to mental disorder Problem: Chronic (13) Generalized anxiety disorder Problem: Chronic Date of Discharge:: 03/14/19 Description of Stay: See above. Procedures Performed: none Results and Findings: Lab Pending Results 03/13/19 21:18: WBC 7.0, RBC 4.09 L, Hgb 12.2 L, Hct 33.4 L, MCV 81.7, MCH 29.8, MCHC 36.5 H, RDW 13.4, Plt Count 201, MPV 10.7, Immature Gran % (Auto) 0.30, Imm ature Gran # (Auto) 0.02, Neutrophils % 57.1, Lymphocytes % 27.8, Monocytes % 8.7, Eosinophils % 5.8 H, Basophils % 0.3, Nucleated RBC % 0.0, Neutrophils # 4.0, Lymphocytes # 1.95, Monocytes # 0.6, Eosinophils # 0.4, Absolute Basophils 0.0 03/13/19 21:18: Sodium 137, Plasma Sodium 138, Potassium 4.9 H, Chloride 101, Carbon Dioxide 22.9 L, Anion Gap 18.0 H, BUN 60 H D, Creatinine 4.57 H D, Est GFR (Non-Af Amer) 17 L D, BUN/Creatinine Ratio 13.1, Random Glucose 148 H, Calcium 8.8, Calcium Adj for Albumin 8.1 L, Total Bilirubin 0.4, AST 25, ALT 31, Alkaline Phosphatase 154, Total Protein 7.9, Albumin 4.5 03/14/19 05:46: Sodium 139, Plasma Sodium 139, Potassium 4.6, Chloride 107 H, Carbon Dioxide 22.1 L, Anion Gap 14.5 H, BUN 50 H, Creatinine 2.98 H D, Est GFR (Non-Af Amer) 28 L D, BUN/Creatinine Ratio 16.8, Random Glucose 109, Calcium 7.8 L 03/14/19 14:00: Sodium 139, Plasma Sodium 139, Potassium 4.9 H, Chloride 107 H, Carbon Dioxide 23.2 L, Anion Gap 13.7, BUN 38 H, Creatinine 2.07 H D, Est GFR (Non-Af Amer) 43 L D, BUN/Creatinine Ratio 18.4, Random Glucose 119 H, Calcium 8.1, Calcium Adj for Albumin 8.0 L, Total Bilirubin 0.4, AST 22, ALT 28, Alkaline Phosphatase 136, Total Protein 7.1, Albumin 3.7 Discharge Location: Home Disposition: Home self-care Condition: Stable Discharge Activity: Activity as tolerated Discharge Diet: Low salt Referrals: Kierra Agee MD [Staff Physician] - One Week Additional Patient Instructions (free text): Patient is to establish with an internal medicine physician due to his complexity. If IM is unavailable for close follow up, please schedule with Dr. Pedro for a one time TCM appt. Complete Home Medications List: Complete Home Medication List: Aspirin [Aspirin Enteric Coated] 325 mg PO DAILY 12/27/13 furosemide 20 mg tablet 40 mg PO BID #360 tab 07/15/18 potassium chloride ER 20 mEq tablet,extended release 40 meq PO DAILY #180 tab 08/18/18 lisinopril 10 mg tablet 20 mg PO BID #90 tab 11/19/18 ranitidine 150 mg tablet See Rx Instructions .ROUTE .COMPLEX #180 unspecified 12/23/18 atorvastatin 40 mg tablet 40 mg PO HS #90 tab 12/31/18 alprazolam 2 mg tablet 2 mg PO QID PRN #120 tab 01/18/19 lurasidone 60 mg tablet 60 mg PO DAILY #30 tab 01/18/19 quetiapine 200 mg tablet 200 mg PO HS PRN #30 tab 01/18/19 sertraline 100 mg tablet 100 mg PO DAILY #30 tab 01/18/19 Carvedilol [Coreg] 25 mg PO BID 03/14/19
[2019-03-14 16:37] VITALS: BP 118/71
[2019-03-14] MEDS ORDERED: CARVEDILOL 25 MG TABLET PO SCH (21:00)
[2019-03-14] MEDS ORDERED: FAMCICLOVIR PO SCH (21:00)
[2019-03-14] MEDS ORDERED: ROSUVASTATIN CALCIUM 20 MG TABLET PO SCH (21:00)
== END 2019-03-14 16:45 | disposition home or self-care (01) | DRG 683 ==
LOC: ER 20:40 → MS 21:49
PROVIDERS: ADMIT Family Medicine; ATTEND Family Medicine
CPT/HCPCS: 36415; 80048; 80053; 85025; 93005; 99285